=== PATIENT | female | born 1995 | race African-American/Black ===

== ENCOUNTER 2017-08-29 09:15 | Emergency (ER) | payer MEDICAID ==
--- NOTE | 2017-08-29 11:43 | RADIOLOGY REPORT (SQ) ---
EXAM DESCRIPTION: CHEST PA/LAT COMPLETED DATE/TIME: 08/29/2017 11:06 am REASON FOR STUDY: cough COMPARISON: None. EXAM PARAMETERS: NUMBER OF VIEWS: two views TECHNIQUE: Digital Frontal and Lateral radiographic views of the chest acquired. RADIATION DOSE: NA LIMITATIONS: none FINDINGS: LUNGS AND PLEURA: No opacities, masses or pneumothorax. No pleural effusion. MEDIASTINUM AND HILAR STRUCTURES: No masses or contour abnormalities. HEART AND VASCULAR STRUCTURES: Heart normal size. No evidence for failure. BONES: No acute findings. HARDWARE: None in the chest. OTHER: No other significant finding. IMPRESSION: NO SIGNIFICANT RADIOGRAPHIC FINDING IN THE CHEST. TECHNICAL DOCUMENTATION: JOB ID: [id number] [employer]- All Rights Reserved
[2017-08-29] MEDS ORDERED: DEXAMETHASONE 4 MG TABLET PO ONE (11:52)
--- NOTE | 2017-08-29 12:01 | ER Document Report ---
HPI - HPI Onset: This morning Onset/Duration: Gradual Quality of pain: Achy Pain Level: 4 Context: Patient presents complaining of cough that started today and difficulty breathing. Patient denies any fever. Associated Symptoms: Nonproductive cough. denies: Earache, Fever Exacerbated by: Denies Relieved by: Denies Similar symptoms previously: Yes Recently seen / treated by doctor: No - ROS ROS below otherwise negative: Yes Systems Reviewed and Negative: Yes All other systems reviewed and negative - CONSTITUTIONAL Constitutional: DENIES: Fever, Chills - RESPIRATORY Respiratory: REPORTS: Coughing - GASTROINTESTINAL Gastrointestinal: DENIES: Nausea, Patient vomiting - MUSCULOSKELETAL Musculoskeletal: DENIES: Back Pain - DERM Skin Color: Normal Skin Problems: None Past Medical History - General Information source: Patient - Social History Smoking Status: Never Smoker Chew tobacco use (# tins/day): No Frequency of alcohol use: None Drug Abuse: None Occupation: None Lives with: Family Family History: Reviewed & Not Pertinent Patient has suicidal ideation: No Patient has homicidal ideation: No Renal/ Medical History: Denies: Hx Peritoneal Dialysis Psychiatric Medical History: Reports: Hx Attention Deficit Hyperactivity Disorder Surgical Hx: Negative Vertical Provider Document - CONSTITUTIONAL Agree With Documented VS: Yes Exam Limitations: No Limitations General Appearance: WD/WN, No Apparent Distress - INFECTION CONTROL TRAVEL OUTSIDE OF THE [place] IN LAST 30 DAYS: No - HEENT HEENT: Atraumatic, Normal ENT Exam, Normocephalic - NECK Neck: Normal Inspection, Supple. negative: Lymphadenopathy-Left, Lymphadenopathy-Right - RESPIRATORY Respiratory: Breath Sounds Normal, No Respiratory Distress, Chest Non-Tender O2 Sat by Pulse Oximetry: 100 - CARDIOVASCULAR Cardiovascular: Regular Rate, Regular Rhythm, No Murmur - BACK Back: Normal Inspection - MUSCULOSKELETAL/EXTREMETIES Musculoskeletal/Extremeties: MAEW, FROM, No Edema - NEURO Level of Consciousness: Awake, Alert, Appropriate Motor/Sensory: No Motor Deficit - DERM Integumentary: Warm, Dry, No Rash Course - Re-evaluation Re-evalutation: 08/29/17 11:56 Respirations even and unlabored. Patient denies any difficulty breathing at this time. Patient x-ray without any concerning findings. No concern for pneumonia or pneumothorax. Patient presents with what sounds consistent with likely bronchospasm at home given reported history of symptoms and events. Will give patient a dose of Decadron here with a prescription for an inhaler to use at home as needed. Good return precautions given. Patient and mother verbalized understanding and agree with plan of care - Vital Signs Vital signs: Temp Pulse Resp BP Pulse Ox 99 F 102 H 22 117/69 100 08/29/17 09:27 08/29/17 09:27 08/29/17 09:27 08/29/17 09:27 08/29/17 09:27 - Diagnostic Test Radiology reviewed: Image reviewed, Reports reviewed Discharge - Discharge Clinical Impression: Bronchospasm Condition: Stable Disposition: HOME, SELF-CARE Instructions: Bronchospasm ([facility]), Inhaled Bronchodilators ([facility]), Steroid Medication Additional Instructions: Return immediately for any new or worsening symptoms Followup with your primary care provider, call tomorrow to make a followup appointment Prescriptions: Albuterol Sulfate [Ventolin Hfa] 2 puff IH Q4HP PRN #17 gm PRN Reason: Referrals: [facility] [Provider Group] - Follow up as needed
[2017-08-29 12:11] VITALS: BP 121/64
== END 2017-08-29 12:12 | disposition home or self-care (01) ==
LOC: ER 09:15
DX: J98.01 Acute bronchospasm (principal); R05 Cough
CPT/HCPCS: 99284; 71046; J3490

== ENCOUNTER 2018-09-21 10:07 | Emergency (ER) | payer MEDICAID ==
[2018-09-21 10:11] VITALS: BP 109/51
[2018-09-21] MEDS ORDERED: BENZONATATE 100 MG CAPSULE PO ONE (10:21)
[2018-09-21] MEDS ORDERED: LIDOCAINE 2% VISCOUS SOLN 20 ML UDCUP PO ONE (10:21)
--- NOTE | 2018-09-21 10:25 | ER Document Report ---
ED General - General Chief Complaint: Vaginal Bleeding Stated Complaint: VAGINAL BLEEDING Time Seen by Provider: 09/21/18 10:15 Notes: 22-year-old female here with complaints of cough congestion runny nose sore throat ongoing for the past 7 days. She has tried some [id number] decongestant for the symptoms. This has helped some. Her sore throat has actually improved since onset of symptoms. No known sick contacts. Immunizations up-to-date. She also complains of some vaginal bleeding for the last 1-2 days. It is slightly darker than usual. She also states that she does not have any breast tenderness or abdominal pain/cramping like she usually does with her periods. She reports that she has never had sexual intercourse with a male and that she is a lesbian therefore she cannot be . Denies any vaginal discharge. TRAVEL OUTSIDE OF THE [place] IN LAST 30 DAYS: No - Related Data Allergies/Adverse Reactions: No Known Allergies Allergy (Verified 09/21/18 10:07) Past Medical History - Social History Smoking Status: Current Every Day Smoker Family History: Reviewed & Not Pertinent Patient has suicidal ideation: No Patient has homicidal ideation: No Renal/ Medical History: Denies: Hx Peritoneal Dialysis Psychiatric Medical History: Reports: Hx Attention Deficit Hyperactivity Disorder Review of Systems - Review of Systems Notes: See history of present illness for pertinent positive review of systems; otherwise all review of systems have been reviewed and are negative Physical Exam - Vital signs Vitals: Temp Pulse Resp BP Pulse Ox 98.4 F 78 16 109/51 L 99 09/21/18 10:11 09/21/18 10:11 09/21/18 10:11 09/21/18 10:11 09/21/18 10:11 - Notes Notes: PHYSICAL EXAMINATION: GENERAL: Well-appearing and in no acute distress. HEAD: Atraumatic, normocephalic. EYES: Pupils equal round and reactive to light, extraocular movements intact, sclera anicteric, conjunctiva are normal. ENT: nares patent, oropharynx minimal erythema but without tonsillar swelling or exudates. Moist mucous membranes. Widely patent airway. Bilateral TM normal NECK: Normal range of motion, supple without lymphadenopathy LUNGS: CTAB and equal. No wheezes rales or rhonchi. HEART: Regular rate and rhythm without murmurs ABDOMEN: Soft, no tenderness. No facial grimacing/wincing upon palpation. No guarding, no rebound. GENITOURINARY: Exam deferred EXTREMITIES: Normal range of motion, no pitting edema. No cyanosis. NEUROLOGICAL: Cranial nerves grossly intact. Normal sensory/motor exams. PSYCH: Normal mood, normal affect. SKIN: Warm, Dry, normal turgor, no rashes or lesions noted Course - Re-evaluation Re-evalutation: 09/21/18 10:23 MEDICAL DECISION MAKING: Concern for upper respiratory infection, most likely viral Dose of oral lidocaine and Tessalon here with prescription Tessalon Instructed patient on fever control with Tylenol and/or (if applicable) Motrin Also discussed keeping hydrated with water or Gatorade/Pedialyte As far as vaginal bleeding, likely her normal She seems to be reliable historian so is unlikely to be Instructed follow-up PCP next day or few Patient understands and agrees to the plan of care - Vital Signs Vital signs: Temp Pulse Resp BP Pulse Ox 98.4 F 78 16 109/51 L 99 09/21/18 10:11 09/21/18 10:11 09/21/18 10:11 09/21/18 10:11 09/21/18 10:11 Discharge - Discharge Clinical Impression: Acute URI Condition: Good Disposition: HOME, SELF-CARE Additional Instructions: You were seen in the emergency department at [facility]. You likely have an upper respiratory infection, most likely viral. Use Motrin and/or Tylenol for fever control. You may use saline nasal spray for stuffy nose. Stay hydrated. Please followup with your primary physician in the next few days for further management/evaluation. Please return to the emergency department for worsening of symptoms or any symptom that you deem to be concer bc or life-threatening. Thank you for allowing us to be part of your care. This is your school/work note for your Emergency Department evaluation today. Prescriptions: Benzonatate [Tessalon Perles 100 mg Capsule] 100 mg PO Q8HP PRN #40 capsule PRN Reason:
== END 2018-09-21 10:30 | disposition home or self-care (01) ==
LOC: ER 10:07
DX: J06.9 Acute upper respiratory infection, unspecified (principal); R05 Cough; J02.9 Acute pharyngitis, unspecified; R09.89 Other specified symptoms and signs involving the circulatory and respiratory systems; N93.9 Abnormal uterine and vaginal bleeding, unspecified; F17.200 Nicotine dependence, unspecified, uncomplicated
CPT/HCPCS: 99283; J3490 ×2

== ENCOUNTER 2020-01-11 08:01 | Emergency (ER) | payer SELFPAY ==
--- NOTE | 2020-01-11 09:21 | ER Document Report ---
ED GI/ - General Chief Complaint: OB Problem (<20wks) Stated Complaint: VAGINAL BLEEDING Time Seen by Provider: 01/11/20 08:58 Primary Care Provider: [facility] [Provider Group] - Follow up as needed [facility] [NO LOCAL MD] - Follow up as needed Mode of Arrival: Ambulatory Information source: Patient Notes: Patient is presently 6 weeks and reports cramping that started 2 days ago that has since resolved. Patient reports vaginal bleeding that started yesterday that has improved today although she still has had some spotting. Patient is about 6 weeks . TRAVEL OUTSIDE OF THE [place] IN LAST 30 DAYS: No - HPI Patient complains to provider of: Pelvic pain. No: Vaginal discharge, Vomiting Onset: Yesterday Timing/Duration: Gradual Quality of pain: Cramping Pain Level: 1 Location: Pelvis Vaginal bleeding (Compared to normal period): Spotting Menstrual period history: Associated symptoms: denies: Diarrhea, Dysuria, Fever, Nausea, Urinary hesitancy, Urinary frequency, Urinary retention, Urinary urgency, Vaginal discharge, Vomiting Exacerbated by: Denies Relieved by: Denies Similar symptoms previously: No Recently seen / treated by doctor: No - Related Data Allergies/Adverse Reactions: No Known Allergies Allergy (Verified 01/11/20 08:07) Past Medical History - General Information source: Patient - Social History Smoking Status: Former Smoker Chew tobacco use (# tins/day): No Frequency of alcohol use: None Drug Abuse: None Occupation: retail Family History: Reviewed & Not Pertinent Patient has homicidal ideation: No Renal/ Medical History: Denies: Hx Peritoneal Dialysis Psychiatric Medical History: Reports: Hx Attention Deficit Hyperactivity Disorder Surgical Hx: Negative Review of Systems - Review of Systems Constitutional: No symptoms reported EENT: No symptoms reported Cardiovascular: No symptoms reported. denies: Chest pain, Dizziness Respiratory: No symptoms reported. denies: Short of breath Gastrointestinal: Abdominal pain. denies: Vomiting Genitourinary: No symptoms reported. denies: Dysuria Female Genitourinary: , Vaginal bleeding. denies: Vaginal discharge Musculoskeletal: denies: Back pain Skin: No symptoms reported Hematologic/Lymphatic: No symptoms reported Neurological/Psychological: No symptoms reported Physical Exam - Vital signs Vitals: Temp Pulse Resp BP Pulse Ox 98.1 F 79 16 99/51 L 100 01/11/20 08:06 01/11/20 08:06 01/11/20 08:06 01/11/20 08:06 01/11/20 08:06 - General General appearance: Appears well, Alert In distress: None - HEENT Head: Normocephalic Eyes: Normal Conjunctiva: Normal Nasal: Normal Mouth/Lips: Normal Mucous membranes: Normal Neck: Normal, Supple. No: Lymphadenopathy - Respiratory Respiratory status: No respiratory distress Chest status: Nontender Breath sounds: Normal. No: Rales, Rhonchi, Stridor, Wheezing Chest palpation: Normal - Cardiovascular Rhythm: Regular Heart sounds: S1 appreciated, S2 appreciated - Abdominal Inspection: Normal Distension: No distension Bowel sounds: Normal Tenderness: Nontender Organomegaly: No organomegaly - Back Back: Normal, Nontender. No: CVA tenderness - Extremities General upper extremity: Normal inspection, Normal strength General lower extremity: Normal inspection, Normal strength - Neurological Neuro grossly intact: Yes Cognition: Normal [place] Coma Scale Eye Opening: Spontaneous [place] Coma Scale Verbal: Oriented [place] Coma Scale Motor: Obeys Commands [place] Coma Scale Total: 15 - Psychological Associated symptoms: Normal affect, Normal mood - Skin Skin Temperature: Warm Skin Moisture: Dry Skin Color: Normal Course - Re-evaluation Re-evalutation: 01/11/20 12:18 Patient with mild hypotension although asymptomatic. Review of patient's previous visit does demonstrate the patient has had lower blood pressure readings. Patient denies any lightheadedness or dizziness at this time. Patient without any excessive vaginal bleeding at this time. Discussed results of patient's ultrasound. Patient encouraged to follow-up with her CHEMICAL SALES REPRESENTATIVE for recheck. Patient encouraged to call tomorrow for an appointment. Discussed worsening symptoms that patient should return medially for. Patient verbalized understanding and is agreeable with discharge plan of care. - Vital Signs Vital signs: Temp Pulse Resp BP Pulse Ox 98.4 F 71 18 97/46 L 98 01/11/20 12:10 01/11/20 12:10 01/11/20 12:10 01/11/20 12:10 01/11/20 12:10 - Laboratory Result Diagrams: 01/11/20 09:35 Laboratory results interpreted by me: 01/11/20 01/11/20 01/11/20 09:35 09:35 09:35 WBC 14.0 H MCH 25.6 L RDW 17.6 H Absolute Neuts (auto) 10.5 H Beta HCG, Quant [id number] H Urine Protein 30 H Urine Blood LARGE H Labs- All tests 24 hr 01/11/20 01/11/20 01/11/20 09:35 09:35 09:35 WBC 14.0 H RBC 4.84 Hgb 12.4 Hct 38.8 MCV 80 MCH 25.6 L MCHC 32.0 RDW 17.6 H Plt Count 283 Lymph % (Auto) 18.9 [place] % (Auto) 5.0 Eos % (Auto) 0.6 Baso % (Auto) 0.6 Absolute Neuts (auto) 10.5 H Absolute Lymphs (auto) 2.6 Absolute Monos (auto) 0.7 Absolute Eos (auto) 0.1 Absolute Basos (auto) 0.1 Seg Neutrophils % 74.9 Beta HCG, Quant [id number] H Total Beta HCG POSITIVE Urine Color Urine Appearance Urine pH Ur Specific Jal Urine Protein Urine Glucose (UA) Urine Ketones Urine Blood Urine Nitrite Urine Bilirubin Urine Urobilinogen Ur Leukocyte Esterase Urine WBC (Auto) Urine RBC (Auto) Squamous Epi Cells Auto Urine Mucus (Auto) Urine Ascorbic Acid Chlamydia DNA (PCR) N.gonorrhoeae DNA (PCR) Blood Type O POSITIVE Rhogam Indicated RHOGAM NOT INDICATED 01/11/20 01/11/20 09:35 09:35 WBC RBC Hgb Hct MCV MCH MCHC RDW Plt Count Lymph % (Auto) [place] % (Auto) Eos % (Auto) Baso % (Auto) Absolute Neuts (auto) Absolute Lymphs (auto) Absolute Monos (auto) Absolute Eos (auto) Absolute Basos (auto) Seg Neutrophils % Beta HCG, Quant Total Beta HCG Urine Color YELLOW Urine Appearance SLIGHTLY-CLOUDY Urine pH 7.0 Ur Specific Jal 1.021 Urine Protein 30 H Urine Glucose (UA) NEGATIVE Urine Ketones NEGATIVE Urine Blood LARGE H Urine Nitrite NEGATIVE Urine Bilirubin NEGATIVE Urine Urobilinogen NEGATIVE Ur Leukocyte Esterase NEGATIVE Urine WBC (Auto) 9 Urine RBC (Auto) 4 Squamous Epi Cells Auto 7 Urine Mucus (Auto) OCC Urine Ascorbic Acid NEGATIVE Chlamydia DNA (PCR) NOT DETECTED N.gonorrhoeae DNA (PCR) NOT DETECTED Blood Type Rhogam Indicated - Diagnostic Test Radiology reviewed: Reports reviewed Discharge - Discharge Clinical Impression: Vaginal bleeding affecting early Subchorionic bleed Qualifiers: Fetus number: single or unspecified fetus Trimester: first trimester Qualified Code(s): O41.8X10 - Other specified disorders of amniotic fluid and membranes, first trimester, not applicable or unspecified Condition: Stable Disposition: HOME, SELF-CARE Instructions: Bleeding During Early ([facility]) Additional Instructions: Return immediately for any new or worsening symptoms Followup with your primary care provider, call tomorrow to make a followup appointment Pelvic rest until cleared by your CHEMICAL SALES REPRESENTATIVE Forms: Return to Work [facility] [NO [facility]AL MD] - Follow up as needed [facility] [Provider Group] - Follow up as needed
[2020-01-11 09:53] LABS: ABSOLUTE BASOPHILS # (AUTO) 0.1 10^3/uL (0.0-0.2); ABSOLUTE EOSINOPHILS # (AUTO) 0.1 10^3/uL (0.0-0.6); ABSOLUTE LYMPHOCYTES (AUTO) 2.6 10^3/uL (0.5-4.7); ABSOLUTE MONOCYTES (AUTO) 0.7 10^3/uL (0.1-1.4); ABSOLUTE NEUT (AUTO) 10.5 10^3/uL (1.7-8.2); BASOPHILS % (AUTO) 0.6 % (0-2); EOSINOPHILS % (AUTO) 0.6 % (0-6); HEMATOCRIT 38.8 % (36.0-47.0); HEMOGLOBIN 12.4 g/dL (12.0-15.5); LYMPHOCYTES % (AUTO) 18.9 % (13-45); MEAN CORPUSCULAR HEMOGLOBIN 25.6 pg (27.0-33.4); MEAN CORPUSCULAR VOLUME 80 fl (80-97); PLATELET COUNT 283 10^3/uL (150-450); RED BLOOD COUNT 4.84 10^6/uL (3.72-5.28); RED CELL DISTRIBUTION WIDTH 17.6 % (11.5-14.0); SEGMENTED NEUTROPHILS % (AUTO) 74.9 % (42-78); TOTAL CELLS COUNTED % (AUTO) 100 %
[2020-01-11 10:08] LABS: APPEARANCE,URINE SLIGHTLY-CLOUDY; BILIRUBIN,URINE NEGATIVE (NEGATIVE); COLOR,URINE YELLOW; GLUCOSE, URINE NEGATIVE (NEGATIVE); KETONES,URINE NEGATIVE (NEGATIVE); LEUKOCYTE ESTERASE,URINE NEGATIVE (NEGATIVE); NITRITE,URINE NEGATIVE (NEGATIVE); PROTEIN,URINE 30 mg/dL (NEGATIVE); URINE SPECIFIC GRAVITY 1.021; UROBILINOGEN,URINE NEGATIVE mg/dL (<2.0)
[2020-01-11 11:24] LABS: CHLAM PCR NOT DETECTED (NOT DETECT)
--- NOTE | 2020-01-11 11:45 | RADIOLOGY REPORT (SQ) ---
EXAM DESCRIPTION: U/S OB TRANSVAGINAL W/O DOP IMAGES COMPLETED DATE/TIME: 01/11/2020 11:08 am REASON FOR STUDY: pelvic pain, vag bleeding COMPARISON: None. TECHNIQUE: Endovaginal static and realtime grayscale images acquired of the pelvis. Additional selec muna spectral and color Doppler images recorded. All images stored on PACs. bHCG: Not available CLINICAL DATES: Last menses 11/25/2019 (6 weeks 5 days) LIMITATIONS: None. FINDINGS: FETUS: Single Living intrauterine . ULTRASOUND EGA: 6 weeks 4 days ULTRASOUND WALLACE: 09/01/2020 EFW: Not applicable less than 20 weeks. CRL: 7.1 mm FHR: 133 beats per minute. SURVEY: Too early to assess. AMNIOTIC FLUID: Adequate amount. PLACENTA: Not yet developed due to early gestation. SUBCHORIONIC BLEED: Yes, SIZE OF BLEED: 2.8 x 1.4 x 0.9 cm along the lower uterine segment. UTERUS: No masses. No anomalies. Uterus is 8 x 5 x 4 cm in size CERVICAL LENGTH: 3 cm Closed. RIGHT ADNEXA: Normal ovary with normal vascular flow. Right ovary 3.4 x 2.1 x 1.8 cm in size. No ad nexal free fluid.No adnexal masses. LEFT ADNEXA: Normal ovary with normal vascular flow. Left ovary 2.3 x 2.6 x 2 cm in size. 1.4 cm le ft ovarian cyst, likely the corpus luteum. No adnexal free fluid.No adnexal masses. FREE FLUID: None. OTHER: No other significant finding. IMPRESSION: LIVING INTRAUTERINE . EGA 6 weeks 4 days Subchorionic hemorrhage present Trimester of : First trimester - 0 to 13 weeks. TECHNICAL DOCUMENTATION: JOB ID: [id number] [employer]- All Rights Reserved rev-11/23 Reading location - IP/workstation name: [email or web address]
[2020-01-11 12:19] VITALS: BP 97/46
== END 2020-01-11 12:18 | disposition home or self-care (01) ==
LOC: ER 08:01
DX: O20.8 Other hemorrhage in early pregnancy (principal); O26.891 Other specified pregnancy related conditions, first trimester; R10.2 Pelvic and perineal pain; O26.51 Maternal hypotension syndrome, first trimester; Z3A.00 Weeks of gestation of pregnancy not specified; Z87.891 Personal history of nicotine dependence
CPT/HCPCS: 36415; 76817; 81001; 84702; 85025; 86900; 86901; 87086; 87491; 87591; 99284